=== PATIENT | female | born 1995 | race African-American/Black ===

== ENCOUNTER 2019-05-20 16:26 | Observation (INO) | payer MEDICAID ==
[~2019-05-20] VITALS: Ht 165.1 cm; Wt 68.5 kg
[2019-05-20 17:17] LABS: CLARITY URINE CLOUDY (CLEAR); COLOR URINE YELLOW (YELLOW); KETONES URINE NEGATIVE (NEGATIVE); LEUKOCYTE ESTERASE URINE 2+ (NEGATIVE); NITRITE URINE NEGATIVE (NEGATIVE); OCCULT BLOOD URINE NEGATIVE (NEGATIVE); PROTEIN URINE NEGATIVE (NEGATIVE); SPECIFIC GRAVITY URINE 1.009 (1.005-1.030); UROBILINOGEN URINE 0.2 E.U./dL (0.2-1.0)
[2019-05-20] MEDS: TERBUTALINE SULFATE 1MG/ML VIAL SUBCUT PRN ×2 (17:17→21:08)
[2019-05-20] MEDS ORDERED: CEFAZOLIN SODIUM 1000MG/VIAL IM ONE (17:45)
[2019-05-20] MEDS ORDERED: ACETAMINOPHEN 500MG TABLET PO NR (18:00)
[2019-05-20] MEDS: LACTATED RINGERS 1,000 ML IV SCH ×2 (18:02→20:28)
[2019-05-20] MEDS ORDERED: CEFAZOLIN 1000MG PREMIX 50 ML IV SCH (20:00)
[2019-05-20 20:57] LABS: BASOPHILS % 0.3 % (0.0-2.0); EOSINOPHILS % 1.5 % (0.0-5.0); HEMATOCRIT. 30.9 % (36.0-48.0); HEMOGLOBIN. 9.9 g/dL (12.0-16.0); LYMPHOCYTES % 21.8 % (20.0-50.0); MEAN CORPUSCULAR HEMOGLOBIN 24.4 pg (28.0-32.0); MEAN CORPUSCULAR VOLUME 76.4 fL (81.0-99.0); MEAN PLATELET VOLUME 10.9 fl (7.4-10.4); MONOCYTES % 10.2 % (2.0-8.0); NEUTROPHILS % 66.2 % (40.0-76.0); PLATELET 102 x1000/uL (130-400); RED BLOOD CELL COUNT 4.05 mill/uL (4.2-5.4); RED CELL DISTRIBUTION WIDTH 13.8 % (11.6-14.6)
== END 2019-05-20 22:15 | disposition left against medical advice (07) ==
LOC: UNDOADMOB 16:26 → 8 EST LDRP 16:26
PROVIDERS: ADMIT Obstetrics & Gynecology; ATTEND Obstetrics & Gynecology
DX: O62.9 Abnormality of forces of labor, unspecified (principal); Z87.42 Personal history of other diseases of the female genital tract; Z3A.26 26 weeks gestation of pregnancy
CPT/HCPCS: 36415; 76805; 81003; 82731; 85025; 96365; 96372; 99281; G0378; J0690; J3105; 96360

== ENCOUNTER 2019-05-24 12:37 | Observation (INO) | payer MEDICAID ==
[~2019-05-24] VITALS: Ht 165.1 cm; Wt 68.5 kg
[2019-05-24 15:19] LABS: CHLORIDE 110 mEq/L (98-107)
[2019-05-24 15:26] LABS: BASOPHILS % 0.4 % (0.0-2.0); EOSINOPHILS % 1.4 % (0.0-5.0); HEMATOCRIT. 33.4 % (36.0-48.0); HEMOGLOBIN. 10.6 g/dL (12.0-16.0); LYMPHOCYTES % 21.7 % (20.0-50.0); MEAN CORPUSCULAR HEMOGLOBIN 24.5 pg (28.0-32.0); MEAN PLATELET VOLUME 11.3 fl (7.4-10.4); MONOCYTES % 8.2 % (2.0-8.0); NEUTROPHILS % 68.3 % (40.0-76.0); PLATELET 130 x1000/uL (130-400); RED BLOOD CELL COUNT 4.34 mill/uL (4.2-5.4); RED CELL DISTRIBUTION WIDTH 14.3 % (11.6-14.6)
[2019-05-25] MEDS ORDERED: PNV1TABL76 MT (18:08)
== END 2019-05-24 15:00 | disposition home or self-care (01) ==
LOC: 8 EST LDRP 12:37 → OB TRIAGE 14:38
PROVIDERS: ADMIT Obstetrics & Gynecology; ATTEND Obstetrics & Gynecology
DX: O26.892 Other specified pregnancy related conditions, second trimester (principal); R10.30 Lower abdominal pain, unspecified; M54.9 Dorsalgia, unspecified; O21.9 Vomiting of pregnancy, unspecified; R51 Headache; Z3A.27 27 weeks gestation of pregnancy
CPT/HCPCS: 36415; 80053; 82731; 85025; 99281; G0378

== ENCOUNTER 2019-05-25 15:24 | Observation (INO) | payer MEDICAID ==
[2019-05-25] MEDS ORDERED: PNV1TABL76 MT (18:08)
== END 2019-05-25 18:30 | disposition home or self-care (01) ==
LOC: 8 EST LDRP 15:24
PROVIDERS: ADMIT Obstetrics & Gynecology; ATTEND Obstetrics & Gynecology
DX: Z34.02 Encounter for supervision of normal first pregnancy, second trimester (principal); Z3A.26 26 weeks gestation of pregnancy; W20.8XXA Other cause of strike by thrown, projected or falling object, initial encounter; Y93.9 Activity, unspecified; Y92.89 Other specified places as the place of occurrence of the external cause
CPT/HCPCS: 76805; 99281; G0378